=== PATIENT | female | born 1970 | race Caucasian/White ===

== ENCOUNTER 2024-01-19 06:46 | Day surgery (SDC) | payer OTHER ==
[~2024-01-19] VITALS: Ht 157.5 cm; Wt 69.0 kg
[~2024-01-19 06:46] MED LIST: NS 500 ML IV ONE
[2024-01-19] MEDS ORDERED: propofoL 20 ML IV ONE (06:53)
[2024-01-19] MEDS ORDERED: LOSARTAN POTASS25 M2 PO (06:58)
[2024-01-19] MEDS ORDERED: ESCI20 PO (06:59)
[2024-01-19] MEDS ORDERED: Budeprion Xl300 MG PO (06:59)
[2024-01-19] MEDS ORDERED: Bupivacaine 0.75% Inj 30 ML Vial ONE (07:04)
[2024-01-19] MEDS ORDERED: Balanced Salt Solution 15ML ONE (07:04)
[2024-01-19] MEDS ORDERED: Lidocaine 2%-Epineph 1:100000 20 ML MDV ONE (07:04)
[2024-01-19] MEDS ORDERED: NS 500 ML IV ONE (07:05)
[2024-01-19] MEDS ORDERED: Erythromycin 0.5% Opth Oint 1 gm ONE (07:05)
--- NOTE | 2024-01-19 07:06 | NUR ---
01/19/24 0706 Basim Jimenez CALL LIGHT WITHIN REACH.
[2024-01-19 09:26] VITALS: BP 127/80
--- NOTE | 2024-01-19 09:26 | NUR ---
01/19/[address] APPROVED RESUMPTION OF EYE DROPS AT HOME.
== END 2024-01-19 09:03 | disposition home or self-care (01) ==
LOC: ORSCSDS 06:46
PROVIDERS: Ophthalmology
PROC: 080PXZZ Alteration of Left Upper Eyelid, External Approach (ICD-10-PCS; principal; 2024-01-19 08:00)
PROC: 080NXZZ Alteration of Right Upper Eyelid, External Approach (ICD-10-PCS; principal; 2024-01-19 08:00)
DX: H02.831 Dermatochalasis of right upper eyelid (principal); H02.834 Dermatochalasis of left upper eyelid; I10 Essential (primary) hypertension; Z79.899 Other long term (current) drug therapy
CPT/HCPCS: A9270; J2704; J7040

== ENCOUNTER → 2025-04-04 | Outpatient (CLI) | payer OTHER ==
[~2025-04-04] MED LIST changes: +Budeprion Xl300 MG PO; +ESCI20 PO; +LOSARTAN POTASS25 M2 PO; -NS 500 ML IV ONE
== END | disposition home or self-care (01) ==
LOC: LAB 19:07 → LAB SHORT 19:07
PROVIDERS: Student in an Organized Health Care Education/Training Program
DX: Z12.4 Encounter for screening for malignant neoplasm of cervix (principal)
CPT/HCPCS: 87624; G0145